=== PATIENT | male | born 1975 | race Caucasian/White ===

== ENCOUNTER → 2020-06-16 | Outpatient (CLI) | payer OTHER ==
[~2020-06-16] MED LIST: HYDACE5 PO; METF500 PO; NAPR500 PO; Naprosyn500 MG PO; OXYACE5T PO; PROM25 PO; Percocet 5-3251 EACH PO; Veetids 500500 MG PO
[2020-06-17 14:46] LABS: Creatinine Urine 9.19 mg/dL (27.00-270.00); Protein, Urine Quantitative 6.3 mg/dL (0.0-11.9)
[2020-06-17 14:48] LABS: Microalbumin, Urine Quant. 39.9 mg/L (0.000-20.000)
== END | disposition home or self-care (01) ==
LOC: LAB SHORT 18:30 → LAB 18:30 → LAB SHORT 06-17 11:26
PROVIDERS: Internal Medicine Nephrology
DX: N18.2 Chronic kidney disease, stage 2 (mild) (principal); D63.1 Anemia in chronic kidney disease; N25.81 Secondary hyperparathyroidism of renal origin; E55.9 Vitamin D deficiency, unspecified; E78.00 Pure hypercholesterolemia, unspecified; R76.9 Abnormal immunological finding in serum, unspecified; R94.5 Abnormal results of liver function studies; R94.6 Abnormal results of thyroid function studies
CPT/HCPCS: 81050; 82043; 82570; 84156